=== PATIENT | male | born 1950 | race Caucasian/White ===

== ENCOUNTER 2017-10-09 07:16 | Day surgery (SDC) | payer MEDICARE, OTHER, SELFPAY ==
[2017-10-02 11:49] VITALS: BP 126/64; PULSE 82; RESP 16; TEMP 36.2; O2SAT 95; BMI 26.6
--- NOTE | 2017-10-02 11:56 | SDCEKG_ITS ---
Test Reason : Blood Pressure : / mmHG Vent. Rate : 076 BPM Atrial Rate : 076 BPM P-R Int : 140 ms QRS Dur : 090 ms QT Int : 412 ms P-R-T Axes : 041 042 036 degrees QTc Int : 463 ms Normal sinus rhythm Normal ECG Confirmed by NOEMY CAPUTO ([id number]), make up editor IOANA HAMMOND ([id number]) on 10/05/2017 1:37:09 PM Referred By: David Melendez Confirmed By:NOEMY CAPUTO
[2017-10-02 12:20] LABS: Hematocrit 43.5 % (40-54); Mean Corp Hgb Conc 34.5 g/gl (32-36); Mean Corpuscular Hgb 32.3 pg (27.0-32.0); Mean Corpuscular Volume 93.5 fL (80-94); Mean Platelet Vol. 9.2 fl (6.2-12.0); Platelet Count 254 K/mm3 (150-450); RBC Distribution Width CV 13.3 % (11.6-14.6); RBC Distribution Width SD 44.1 fl (35.1-43.9); Red Blood Count 4.65 M/mm3 (4.6-6.2); White Blood Count 7.9 K/mm3 (4.4-11.0)
[2017-10-02 12:22] LABS: Scan Indicated on CBC? Y/N NO
[2017-10-02 12:40] LABS: Anion Gap 8 (5-15); BUN 19 mg/dL (7-18); BUN/Creat Ratio 29.1 RATIO (10-20); Calcium,Total 11.1 mg/dL (8.5-10.1); Chloride 93 mmol/L (98-107); Creatinine, Serum 0.65 mg/dL (0.70-1.30); EST Glomerular Filtration Rate 130 mL/min (>60); Est Glom Filt Rate - Afr Amer 157 mL/min (>60); Estimated Creatinine Clearance 72.66 ml/min; Glucose 92 mg/dL (74-106); Potassium 3.5 mmol/L (3.5-5.1); Sodium Level 129 mmol/L (136-145)
[2017-10-09] VITALS (13 sets, daily range): BP systolic 117–134; BP diastolic 78–89; PULSE 70–85; RESP 16–18; TEMP 36.4–36.7; O2SAT 89–96; BMI 26.6
--- NOTE | 2017-10-09 | IMM_PTH ---
PATIENT: JACINTO ARANDA LOC: [facility] [place] U#:[id number] AGE/SX: 67/M ROOM: RE10/09/[address]: Dr. David Melendez MD : 1950 BED: DIS: 10/10/2017 SPEC #: [id number] RECD: 10/12/17 12:20 STATUS: BRITTNEE REAlfredito #: [id number] RICH: 10/09/17 00:[address]: David Melendez DEPT: IMMUNOHISTOCHEMISTRY RECD BY: Janeth Brownlee ENTERED: 10/12/17 12:28 SP TYPE: IMMUNO OTHR DR: Out of [facility] Doctor Tissues: Prostate, NOS Procedures: Synapto (add) CK8 (initial) CD45 (add) CD56 (add) CHROMO (add) CK20 (add) CK7 (add) P53 (add) PSA (add) TTF1 (add) NAPSIN A (initial) PHYSICIAN & INSTITUTION [place] [id number] SPECIMEN INFORMATION: Tissue Source: Prostate tissue Clinical Info: BPH with obstruction, bladder neck contracture, prostate cancer Specimen Number: [id number] #1 CPT code: 74749, 98064 x11 METHODOLOGY: Deparaffinized sections of prefer/formalin-fixed tissue or PAP/DQ stained slides are incubated with monoclonal/polyclonal antibodies/oligonucleotide probes. Localization is made via biotin free immunoperoxidase method. Appropriate controls are performed and reacted as expected. Results on target cell population are indicated in the following table: RESULTS: ANTIBODY / CLONE RESULT Block 1 CK8 ([id number]) positive CK7 (OV-TL12/30) negative CK20 (KS20.8) positive, focal PSA (ER-PR8) negative P53 (DO-7) negative CD56 (123C3.D5) positive, focal Chromo (LK2H10) negative Synapto (polyclonal) negative TTF-1 (8G7G3/1) negative Napsin A (Rabbit Polyclonal) negative (high background staining) PSAP (PASE/4LJ) negative CD45 (RP2/18) negative These tests were developed and their performance characteristics determined by [facility]. They may not have been cleared or approved by the U.S. Food and Drug Administration. The FDA has determined that such clearance or approval is not necessary. 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 SJ:yarelis 10/13/17 Case has been reviewed in consultation with Dr. Penaloza who concurs with the above diagnosis. IDC:AM
--- NOTE | 2017-10-09 09:00 | PROS_PTH ---
PATIENT: JACINTO ARANDA LOC: [facility] [place] U#:[id number] AGE/SX: 67/M ROOM: RE10/09/[address]: Dr. David Melendez MD : 1950 BED: DIS: 10/10/2017 SPEC #: [id number] RECD: 10/09/17 10:52 STATUS: BRITTNEE NELLY #: [id number] RICH: 10/09/17 09:[address]: David Melendez DEPT: SURGICAL PATHOLOGY RECD BY: Sunny Montenegro ENTERED: 10/09/17 12:05 SP TYPE: TURP OTHR DR: Out of Town Doctor Tissues: Prostate, NOS Procedures: Surgery Specimen Level IV HEADER OPERATION: Cysto, transurethral resection bladder, [place], bladder neck contracture PRE-OP DIAGNOSIS: BPH with obstruction, bladder neck contracture, prostate cancer TISSUE SUBMITTED: Prostate tissue MICROSCOPIC DIAGNOSIS Prostate tissue, TUR: Poorly differentiated carcinoma with focal neuroendocrine features. Prostate gland: TUR cancer summary: Procedure ? Transurethral prostatic resection. Specimen size ? weight -1.2 gm. Histologic type - Poorly differentiated carcinoma with focal neuroendocrine features. Histologic grade, Spenser pattern ? not applicable. Tumor quantification: TUR specimen: Proportion of prostatic tissue involved by tumor ? ~50% Number of positive chips ? 7 Total number of chips - ~14 Periprostatic fat invasion ? not applicable Seminal vesicle invasion ? not applicable Lymphvascular invasion ? not identified Perineural invasion - not identified. Additional pathologic findings ? multiple fragments of stones. The above summary is in compliance with [employer] (CAP) cancer protocols check list and AJCC, staging manual, 7th Ed. SJ:rg 10/13/17 COMMENT Immunohistochemistry ([id number]) supports the above diagnosis Please make reference to previous specimen ([id number]) right and left prostate tissue, core biopsy with diagnosis of prostatic adenocarcinoma, Spenser score 5+5=10 and ([id number]) prostatic adenocarcinoma, Spenser grade 5+5=10. Case has been reviewed in consultation with Dr. Penaloza who concurs with the above diagnosis. IDC:AM MICROSCOPIC DESCRIPTION Slides are reviewed. GROSS DESCRIPTION Received is one container labeled with the patient's name and designated prostate tissue. The specimen consists of multiple irregular fragments of connolly soft tissue mixed with fragments of brownish stones that in aggregate weigh 1.2 gm and measure in aggregate 2 x 2.5 x 0.3 cm. Most of the stones are removed from the soft tissue. The entire specimen containing soft tissue is submitted in one cassette. / EMA:yarelis 10/09/17 TC:0 CPT: 95078
[2017-10-09] MEDS: Cefazolin 2 GM in 0.9% Normal Saline 100 ML IV (09:46)
--- NOTE | 2017-10-09 10:20 | PCM.OPRPT ---
Problem List (1) Prostate cancer Status: Chronic (2) Bladder neck contracture Status: Acute Report of Operation Date of Procedure: 10/09/17 Pre-Operative Diagnosis: Bladder neck contracture history of prostate cancer Post-Operative Diagnosis: Same Surgery/Procedure Performed:: Cystoscopy and transurethral resection the bladder neck contracture and resection of necrotic tissue at the bladder neck Description of Surgical Findings:: 67-year-old male who unfortunately has metastatic prostate cancer he is currently undergoing systemic treatment he underwent a TURP about a year ago for retention of urine is now developed necrotic tissue in the bladder neck contracture this is given him chronic pain and discomfort in the bladder area I did a cystoscopy and found some necrotic tissue and calcifications of the bladder neck recommended we do a TURP and resection of the bladder neck contracture in the necrotic tissue he understands is possible that this may recur may be a chronic problem. 67-year-old male with a bladder neck contracture and also necrotic tissue at the bladder neck taken back to surgery after smooth induction of general anesthesia he was placed in dorsal lithotomy position penis and testicles were prepped and draped in usual sterile fashion. Went into the bladder with a 24 [place] noncontinuous flow resectoscope once I got past the sphincter the entire length of the urethra was normal pendulous urethra is normal bulbar urethra is normal sphincter was intact past the verumontanum he had heart calcifications right at the bladder neck I used a cold loop to pull these calcifications up and then resected the bladder neck contracture he a tight bladder neck once this was resected and all the calcifications were removed and I cauterized obtained good hemostasis. Then looked inside the bladder the rest of the bladder was normal no tumors or stones within the bladder had an open bladder neck then I placed a 22 [place] Citizen catheter inside the bladder put on continuous bladder irrigation and the patient's anesthetic is currently being reversed he will go home with a catheter for about a week then get the catheter removed a week later. Type of Anesthesia:: General Drains: 22fr - Admit VTE Documentation VTE Present on Admission: No VTE Mechan Device Prophylaxis: SCD's VTE Pharm Prophylaxis ordered?: No
[2017-10-09] MEDS: Ibuprofen 600 MG Tablet PO (12:42)
[2017-10-09] MEDS: 0.9% Normal Saline 1,000 ML 75 ML IV (12:42)
[2017-10-09] MEDS: LORazepam 0.5 MG Tablet PO (12:42)
[2017-10-09] MEDS: oxyCODONE 5 MG Tablet PO ×3 (14:33→22:36)
[2017-10-09] MEDS: Acetaminophen 325 MG Tablet PO ×3 (14:33→22:35)
[2017-10-09] MEDS: Ciprofloxacin 500 MG Tablet PO ×2 (14:36→21:01)
[2017-10-09] MEDS: Docusate Sodium 100 MG Capsule PO ×2 (14:36→21:01)
[2017-10-10] MEDS: 0.9% Normal Saline 1,000 ML 75 ML IV (00:37)
[2017-10-10 02:35] VITALS: BP 115/78; PULSE 63; RESP 16; TEMP 36.4; O2SAT 95
[2017-10-10] MEDS: oxyCODONE 5 MG Tablet PO ×3 (02:39→11:51)
[2017-10-10] MEDS: Acetaminophen 325 MG Tablet PO (02:39)
[2017-10-10 07:00] VITALS: O2SAT 95
[2017-10-10 08:35] VITALS: BP 111/71; PULSE 66; RESP 16; TEMP 36.5; O2SAT 92
[2017-10-10] MEDS: Ciprofloxacin 500 MG Tablet PO (08:54)
[2017-10-10] MEDS: Docusate Sodium 100 MG Capsule PO (08:54)
[2017-10-10] MEDS: Magnesium Oxide 400 MG Tablet PO (08:54)
[2017-10-10] MEDS: Pantoprazole Sodium 40 MG Tablet PO (08:54)
--- NOTE | 2017-10-10 09:28 | PCM.DC.URO ---
Discharge Diet: Light diet - advance as tolerated Discharge Activity: Return to Normal Activity, May not drive while taking narcotic pain medications. May shower in (days): 1 Call your doctor if your incision/area has: Sudden Increased Bleeding Instructions: Transurethral Resection of the Prostate (TURP): Home Recovery Allergies/Adverse Reactions: Allergies No Known Allergies Allergy (Verified 01/19/17 09:34) Medications to take at Discharge Lorazepam [Ativan] 0.5 mg PO 4X/DAY PRN 09/29/16 Dexamethasone [Decadron] 8 mg PO BIDCM PRN 12/01/16 Ondansetron [Zofran Odt] 4 mg PO Q8H PRN PRN 12/01/16 Potassium Chloride [K-Dur] 20 meq PO DAILY #30 tablet 01/19/17 Ciprofloxacin [Cipro] 500 mg PO BID 10/02/17 Eplerenone [Inspra] 25 mg PO DAILY 10/02/17 Leuprolide Acetate [Eligard] 22.5 mg SQ QMONTH 10/02/17 Magnesium Oxide [Magnesium] 500 mg PO DAILY 10/02/17 Metolazone [Zaroxolyn] 2.5 mg PO DAILY 10/02/17 Spironolactone [Aldactone] 25 mg PO DAILY 10/02/17 Ciprofloxacin [Cipro] 500 mg PO BID #14 tab 10/10/17 Hydrocodone/Acetaminophen [[place] 5-325 Tablet] 1 ea PO Q4H PRN PRN 7 Days #20 tab 10/10/17 The following prescriptions were given: Hydrocodone/Acetaminophen [[place] 5-325 Tablet] 1 ea PO Q4H PRN PRN 7 Days #20 tab PRN Reason: Pain Ciprofloxacin [Cipro] 500 mg PO BID #14 tab Primary Care Physician: Marcelino Brennan,Out of [Primary Care Provider] - Please Follow Up With: David Melendez MD - call if need to change appt. When: ThursdayOctober 20 at 8:30 am, post op follow up.
--- NOTE | 2017-10-10 09:31 | DCINST_ITS ---
Discharge Diet: Light diet - advance as tolerated Discharge Activity: Return to Normal Activity, May not drive while taking narcotic pain medications. May shower in (days): 1 Call your doctor if your incision/area has: Sudden Increased Bleeding Instructions: Transurethral Resection of the Prostate (TURP): Home Recovery Allergies/Adverse Reactions: Allergies No Known Allergies Allergy (Verified 01/19/17 09:34) Medications to take at Discharge Lorazepam [Ativan] 0.5 mg PO 4X/DAY PRN 09/29/16 Dexamethasone [Decadron] 8 mg PO BIDCM PRN 12/01/16 Ondansetron [Zofran Odt] 4 mg PO Q8H PRN PRN 12/01/16 Potassium Chloride [K-Dur] 20 meq PO DAILY #30 tablet 01/19/17 Ciprofloxacin [Cipro] 500 mg PO BID 10/02/17 Eplerenone [Inspra] 25 mg PO DAILY 10/02/17 Leuprolide Acetate [Eligard] 22.5 mg SQ QMONTH 10/02/17 Magnesium Oxide [Magnesium] 500 mg PO DAILY 10/02/17 Metolazone [Zaroxolyn] 2.5 mg PO DAILY 10/02/17 Spironolactone [Aldactone] 25 mg PO DAILY 10/02/17 Ciprofloxacin [Cipro] 500 mg PO BID #14 tab 10/10/17 Hydrocodone/Acetaminophen [[place] 5-325 Tablet] 1 ea PO Q4H PRN PRN 7 Days #20 tab 10/10/17 The following prescriptions were given: Hydrocodone/Acetaminophen [[place] 5-325 Tablet] 1 ea PO Q4H PRN PRN 7 Days #20 tab PRN Reason: Pain Ciprofloxacin [Cipro] 500 mg PO BID #14 tab Primary Care Physician: Marcelino Brennan,Out of [Primary Care Provider] - Please Follow Up With: David Melendez MD - call if need to change appt. When: ThursdayOctober 20 at 8:30 am, post op follow up.
== END 2017-10-10 13:02 | disposition home or self-care (01) ==
LOC: SDC 07:21 → AC 07:21 → MS2 08:36
PROVIDERS: Anesthesiology; Visit Provider Urology
PROC: 0TBB8ZZ Excision of Bladder, Via Natural or Artificial Opening Endoscopic (ICD-10-PCS; CPT 52640; principal; 2017-10-09 08:50)
DX: N40.1 Benign prostatic hyperplasia with lower urinary tract symptoms (principal); C61 Malignant neoplasm of prostate; R33.8 Other retention of urine; R31.21 Asymptomatic microscopic hematuria; N13.8 Other obstructive and reflux uropathy; R97.21 Rising PSA following treatment for malignant neoplasm of prostate; C79.51 Secondary malignant neoplasm of bone; N32.0 Bladder-neck obstruction; R35.0 Frequency of micturition; R39.11 Hesitancy of micturition; R35.1 Nocturia; R39.12 Poor urinary stream; N39.498 Other specified urinary incontinence; G89.29 Other chronic pain; Z79.899 Other long term (current) drug therapy
CPT/HCPCS: 52640; 80048; 85027; 88305; 88341; 88342; J7030; J7120; J2405